=== PATIENT | female | born 1955 | race Caucasian/White ===

== ENCOUNTER → 2023-12-07 11:07 | Outpatient (REF) | payer BC, SELFPAY ==
[2023-12-07 12:48] LABS: % Basophils 0.6 % (0-2); % Eosinophils 2.9 % (0-6); % Immature Granulocytes 0.2 % (0-0.5); % Lymphocytes 30.7 % (20.5-51.1); % Monocytes 10.5 % (1.7-9.3); % Neutrophils 55.1 % (42.2-75.2); Absolute Eosinophils 0.1 10^3/uL (0-0.7); Absolute Lymphocytes 1.5 10^3/uL (1.2-3.4); Absolute Monocytes 0.5 10^3/uL (0.1-0.6); Absolute Neutrophils 2.7 10^3/uL (1.4-6.5); Hematocrit 36.2 % (37.0-47.0); Hemoglobin 11.5 g/dL (12.0-16.0); Mean Corp Hgb Conc. 31.8 g/dL (33.0-37.0); Mean Corpuscular Hgb 26.9 pg (27.0-31.0); Mean Corpuscular Volume 84.8 fL (81.0-99.0); Mean Platelet Volume 11.8 fL (7.4-10.4); Nucleated Red Blood Cells % 0 %; Platelet Count 148 10^3/uL (130-400); Red Blood Cell Count 4.27 10^6/uL (4.20-5.40); Red Cell Dist. Width 13.4 % (11.5-14.5); White Blood Cell Count 4.9 10^3/uL (4.8-10.8)
[2023-12-07 13:10] LABS: Erythrocyte Sed Rate 19 mm/hour (0-20)
[2023-12-07 13:43] LABS: ALT (SGPT) 22 U/L (0-35); AST (SGOT) 26 U/L (14-36); Albumin 4.1 g/dl (3.5-5.0); Alkaline Phosphatase 69 U/L (38-126); Blood Urea Nitrogen 17 mg/dl (7-17); Calcium 9.4 mg/dl (8.4-10.2); Carbon Dioxide 23 mmol/L (22-30); Chloride 104 mmol/L (98-107); Glucose 142 mg/dl (70-99); Potassium 4.3 mmol/L (3.5-5.1); Sodium 139 mmol/L (135-145); Total Bilirubin 0.5 mg/dl (0.2-1.3); Total Protein 6.6 g/dl (6.3-8.2); eGFR > 60.00
[2023-12-07 13:46] LABS: C-Reactive Protein < 5.00 mg/L (0.0-10.00)
[2023-12-08 15:39] LABS: Rheumatoid Agglutinin Less Than 10 IU (<10 IU)
[2023-12-09 18:37] LABS: CCP Antibody IgG/IgA 4 Units (0-19)
[2023-12-09 19:47] LABS: HLA-B27 Negative (Negative)
== END ==
LOC: RAD 11:07
PROVIDERS: ATTENDING PHYSICIAN Internal Medicine Rheumatology; FAMILY PHYSICIAN Nurse Practitioner Family
DX: M25.549 Pain in joints of unspecified hand (principal)
CPT/HCPCS: 36415; 76882; 80053; 85025; 85652; 86140; 86200; 86430; 86812

== ENCOUNTER → 2024-12-31 11:59 | Outpatient (REF) | payer BC, SELFPAY | LOC: PAVMRI 11:59 | PROVIDERS: ATTENDING PHYSICIAN Psychiatry & Neurology Vascular Neurology; FAMILY PHYSICIAN Nurse Practitioner Family | DX: G31.84 Mild cognitive impairment of uncertain or unknown etiology (principal) | CPT/HCPCS: 70551 ==

== ENCOUNTER 2025-01-16 08:47 | Emergency (ER) | payer BC, SELFPAY ==
[2025-01-16 08:51] VITALS: BP 137/74
--- NOTE | 2025-01-16 09:36 | ED.GENMED ---
History of Present Illness
General
Chief Complaint: Cold/Flu/URI Symptoms
Time Seen by Provider: 01/16/25 09:35
History of Present Illness
History of Present Illness:
69-year-old female with history of hypertension, hyperlipidemia, Sjogren's and insulin-dependent diabetes presents to the emergency department for evaluation of facial pressure, rhinorrhea, and sore throat. She notes that she has chronic sinusitis
and feels the symptoms are worsening her chronic symptoms. Denies any associated fevers or chills, states she feels mentally 'foggy'. Denies chest pain or shortness of breath. Rhinorrhea is clear. Did not take any [id number] medications
for symptoms today.
Past History
Past History
ED Past Medical History: Fibromyalgia, GERD, HTN, Hypercholesterolemia, NIDDM and Other (diverticulitis 2002)
ED Past Surgical History: Other (polypectomy, gastric bypass, L heel spur surgery,)
Social History
Tobacco: Non-smoker (non contributory)
Alcohol: None (non contributory)
Drug: None
Employment: Other (non contributory)
Review of Systems
Review of Systems
Allergies reviewed?: Yes
All Other Systems: ROS reviewed and negative except as documented in HPI and ROS
Phy Exam
Physical Exam
Physical Exam:
GEN: Well appearing, NAD, WDWN
HEENT: Oral mucosa moist, no scleral icterus, scant clear rhinorrhea, clear postnasal drip in the oropharynx noted, no stridor
Cardiac: Regular rate and rhythm, no murmur
Lung: No respiratory distress, no tachypnea, lungs clear to auscultation
MSK: No gross deformity or injuries
Skin: Good color, no pallor or jaundice, no rashes
Neuro: AO x3, moves all extremities freely
Psych: Calm, cooperative
Course
Orders/Labs/Results
Orders:
Orders
01/16/25 10:02
COVID-19 Antigen Urgent
Source: Nasal Swab
Influenza A+B Rapid Molecular Urgent
[facility] Source: Nasal Swab
Specimen Description:
Vital Signs
Initial and Last Documented VS:
Initial Vital Signs
Temp Pulse Resp Pulse Ox
98.1 F 67 18 100
01/16/25 08:49 01/16/25 08:49 01/16/25 08:49 01/16/25 08:49
Last Documented Vital Signs
Temp Pulse Resp BP Pulse Ox
98.1 F 71 20 128/87 98
01/16/25 08:49 01/16/25 10:51 01/16/25 10:51 01/16/25 10:51 01/16/25 10:51
MDM/Problems Addressed
MDM/Problems Addressed:
Viral testing is negative. Given her history of chronic sinusitis this is likely an acute exacerbation and will treat accordingly with antibiotics particular given that she is immunocompromised as some insulin dependent diabetic and with underlying
autoimmune disorder.
*Pulse Oximetry
SaO2: 100
Patient hypoxic: no
*Critical Care Note
Total Time (30-74mins, 75-104mins- exclusive of procedures): Not Applicable
ED Attending Note
-
Portions of this chart may have been created with voice recognition software.� Occasional wrong word or��sound alike� substitutions may have occurred due to the inherent limitations of voice recognition software.
Discharge Plan
Departure
Patient Disposition: Home (Routine Discharge)
Date of Disposition: 01/16/25
Time of Disposition: 10:42
Patient with high blood pressure during this ER visit?: No
Discharge Problem:
Acute bacterial rhinosinusitis
Instructions: Sinusitis in adults - ED (DC)
Prescriptions:
New
amoxicillin-pot clavulanate 875-125 mg tablet
1 tab PO BID Qty: 10 0RF
No Action
lisinopril [Zestril] 2.5 MG tablet
10 mg PO DAILY
omeprazole magnesium [Prilosec OTC] 20 MG tablet,delayed release (DR/EC)
40 mg PO DAILY
insulin glargine [Lantus U-100 Insulin] 100 unit/mL Solution
20 unit SC HS
rosuvastatin [Crestor] 40 mg Tablet
40 mg PO DAILY
docusate sodium [Colace] 100 MG capsule
100 mg PO PRN PRN (Reason: constipation)
fluticasone propionate 50 mcg/actuation [place],Suspension
1 spray INTRANASAL DAILY
multivitamin Tablet
1 tab PO DAILY
zinc acetate 25 mg (zinc) Capsule
25 mg PO DAILY
mometasone 0.1 % Cream
1 applic TOPICAL DAILY
Rx Instructions:
ears for dryness
cholecalciferol (vitamin D3) [Vitamin D3] 125 mcg (5,000 unit) Tablet
125 mcg PO DAILY
vitamin H44-obvzn acid 500-400 mcg Tablet
1 tab PO DAILY
Rx Instructions:
administer with a meal
Cbd/Thc
1 tab PO PRN PRN (Reason: sleep)
mupirocin 2 % ointment
1 applic topical BID Qty: 1 0RF
Patient Comments:
last 12/17 729 since Wednesday 12/13 bid
famotidine [Pepcid] 40 mg Tablet
PO PRN PRN (Reason: reflux)
nadolol 20 mg Tablet
20 mg PO DAILY
aspirin 325 mg Tablet
325 mg PO DAILY Qty: 30 0RF
oxycodone 5 mg tablet
5 mg PO BID PRN (Reason: severe pain ) Qty: 14 0RF
Referrals:
Eric Vines MD [Family Provider, Family Practice]
Interventions
Interventions:
*Risk Screen - Suicide Last Done: 01/16/25 08:52
*General Assessment Last Done: 01/16/25 10:05
*Neglect/Abuse Screening Last Done: 01/16/25 10:05
*ED COVID-19 Vaccine History Last Done: 01/16/25 10:05
*ED Influenza Vaccine History Last Done: 01/16/25 10:05
*Nursing Disposition Last Done: 01/16/25 10:51
ED- Pulmonary Assessment Last Done: 01/16/25 10:05
Discharge Date and Time
Discharge Date/Time: 01/16/25 10:52
Print Language: HEBREW
[2025-01-16 10:21] LABS: COVID-19 Antigen Negative (Negative)
[2025-01-16 10:51] VITALS: BP 128/87
== END 2025-01-16 10:52 | disposition home or self-care (01) ==
LOC: EMR 08:47
PROVIDERS: Physician Assistant; EMERGENCY PHYSICIAN Emergency Medicine; FAMILY PHYSICIAN Family Medicine
DX: J01.90 Acute sinusitis, unspecified (principal); B96.89 Other specified bacterial agents as the cause of diseases classified elsewhere; E11.9 Type 2 diabetes mellitus without complications; E78.00 Pure hypercholesterolemia, unspecified; I10 Essential (primary) hypertension; M35.00 Sjogren syndrome, unspecified; M79.7 Fibromyalgia; Z11.52 Encounter for screening for COVID-19; Z98.84 Bariatric surgery status
CPT/HCPCS: 99283; 87502; 87811